=== PATIENT | female | born 1995 | race Two or more races ===

== ENCOUNTER → 2019-01-28 | Outpatient (CLI) | payer OTHER | END | disposition home or self-care (01) | LOC: PRENATAL 13:00 | DX: O35.3XX0 Maternal care for (suspected) damage to fetus from viral disease in mother, not applicable or unspecified (principal) ==

== ENCOUNTER 2019-05-12 00:29 | Outpatient (CLI) | payer OTHER ==
[2019-05-12] MEDS ORDERED: PRENATABS RX T1 EACH PO (02:54)
== END 2019-05-12 16:27 | disposition home or self-care (01) ==
LOC: OBS/DEL 00:29
DX: O60.03 Preterm labor without delivery, third trimester (principal)

== ENCOUNTER 2019-05-31 05:36 | Inpatient (IN) | payer OTHER ==
[~2019-05-31] VITALS: Ht 157.5 cm; Wt 57.6 kg
[~2019-05-31 05:36] MED LIST: PRENATABS RX T1 EACH PO
[2019-05-31] MEDS ORDERED: INFED50 MG/ML IJ (07:24)
== END 2019-06-02 13:58 | DRG 807 ==
LOC: LDR 05:36 → OB/GYN 19:35
PROVIDERS: ADMIT Obstetrics & Gynecology
PROC: 10E0XZZ Delivery of Products of Conception, External Approach (ICD-10-PCS; principal; 2019-05-31)
PROC: 0KQM0ZZ Repair Perineum Muscle, Open Approach (ICD-10-PCS; 2019-05-31)
PROC: 4A1HXCZ Monitoring of Products of Conception, Cardiac Rate, External Approach (ICD-10-PCS; 2019-05-31)
PROC: 4A033R1 Measurement of Arterial Saturation, Peripheral, Percutaneous Approach (ICD-10-PCS; 2019-05-31)
DX: O70.0 First degree perineal laceration during delivery (principal); Z37.0 Single live birth; Z3A.39 39 weeks gestation of pregnancy

== ENCOUNTER 2023-05-08 12:59 | Emergency (ER) | payer OTHER ==
[~2023-05-08] VITALS: Ht 162.6 cm; Wt 49.9 kg
[~2023-05-08 12:59] MED LIST changes: +INFED50 MG/ML IJ
[2023-05-08] MEDS ORDERED: AZO URINARY TR1 EAC1 PO (13:23)
[2023-05-08] MEDS ORDERED: VALACYCLOVIR1000 MG PO (13:24)
[2023-05-08] MEDS ORDERED: CLEOCIN HCL300 MG PO (13:24)
[2023-05-08] MEDS ORDERED: DEXAMETHASONE SODIUM PHOSPHATE 4 MG/ML VIAL IM STA (14:10)
[2023-05-08] MEDS ORDERED: METROnidazole 500 MG TABLET PO STA (14:21)
[2023-05-08 14:43] LABS: HEMATOCRIT 37.8 % (36.0-45.00); HEMOGLOBIN 12.7 g/dL (12.0-15.00); MEAN CELL VOLUME 85.5 fL (80.00-100.00); MEAN CORPUSCULAR HEMOGLOBIN 28.6 pg (27.00-32.0); MEAN CORPUSCULAR HGB CONC 33.5 g/dl (32.0-36.0); PLATELET COUNT 221 K/uL (150-450); RED BLOOD COUNT 4.42 M/uL (4.00-6.00); RED CELL DISTRIBUTION WIDTH 13.5 % (11.5-14.5); URINE APPEARANCE Cloudy; URINE BILIRRUBIN Negative (NEGATIVE); URINE BLOOD Small; URINE COLOR Yellow; URINE GLUCOSE Negative (NEGATIVE); URINE LEUKOCYTE Moderate; URINE NITRATE Negative; URINE PROTEIN Trace (NEGATIVE)
[2023-05-08 14:46] LABS: URINE BACTERIA 574.5 uL (0.0-1933); URINE WBC 1287.4 uL (0.0-23.2)
[2023-05-08 15:25] LABS: CALCIUM 8.9 mg/dL (8.5-10.1); CREATININE SERUM 0.66 mg/dL (0.55-1.02); GFR 105.88; POTASSIUM 3.93 mEq/L (3.5-5.1)
[2023-05-08] MEDS ORDERED: METRONIDAZOLE500 MG PO (16:08)
== END 2023-05-08 16:06 | disposition home or self-care (01) ==
LOC: ER 12:59
PROVIDERS: General Practice
DX: S31.41XA Laceration without foreign body of vagina and vulva, initial encounter (principal); X58.XXXA Exposure to other specified factors, initial encounter; Y93.89 Activity, other specified; Y92.89 Other specified places as the place of occurrence of the external cause; Y99.8 Other external cause status; N76.0 Acute vaginitis; B96.89 Other specified bacterial agents as the cause of diseases classified elsewhere